=== PATIENT | female | born 1985 | race Caucasian/White ===

== ENCOUNTER → 2021-02-18 | Outpatient (CLI) | payer OTHER ==
[~2021-02-18] MED LIST: COLACE 100MG C100 MG PO; GLUCOTROL 10 MG10 MG PO; IBUPROFEN600 MG PO; METFORMIN HCL500 MG PO; NORCO 5-325 TA1 EACH PO; SPIRONOLACTONE50 MG PO
== END ==
LOC: EXRD 08:00
DX: M79.661 Pain in right lower leg (principal)
CPT/HCPCS: 93971